=== PATIENT | male | born 1970 | race Caucasian/White ===

== ENCOUNTER → 2018-10-21 | Day surgery (SDC) | payer BC ==
[~2018-10-21] MED LIST: LACTATED RINGERS 1,000 ML IV SCH; LIDOCAINE 1% 20 ML VIAL (10MG/ML) FOR IV START INTRADERMA PRN; PROPOFOL 10 MG/ML 20 ML VIAL IV ONE
[2018-10-21 09:32] VITALS: TEMP 98.8
--- NOTE | 2018-10-21 10:27 | P.PCN ---
Date of Procedure: 10/21/18 Procedure(s) Performed: BRIEF HISTORY: Patient is a 48-year-old pleasant white male scheduled for an elective colonoscopy as a part of screening for colorectal neoplasia. PROCEDURE PERFORMED: Colonoscopy. PREOPERATIVE DIAGNOSIS: Screening for colon cancer. IV sedation per Anesthesia. PROCEDURE: After informed consent was obtained, the patient, was brought into the endoscopy unit. IV sedation was administered by Anesthesia under continuous monitoring. Digital rectal examination was normal. Initially the Olympus CF-160 flexible video colonoscope was then inserted in the rectum, gradually advanced into the cecum without any difficulty. Careful examination was performed as the scope was gradually being withdrawn. Ileocecal valve and the appendiceal orifice were visualized and appeared normal. Prep was excellent. Mucosa of the cecum, ascending colon, transverse colon, descending colon, sigmoid colon, and rectum appeared normal. Retroflexion was performed in the rectum and no lesions were seen. The patient tolerated the procedure well. IMPRESSION: Normal-appearing colon from rectum to cecum with no evidence of colorectal neoplasia . RECOMMENDATIONS: Findings of this examination were discussed with the patient as well as his family. He was advised to have a repeat screening colonoscopy in 10 years.
[2018-10-21 10:31] VITALS: PULSE 60
[2018-10-21 10:47] VITALS: BP 115/72; RESP 18
== END ==
LOC: ORWHC2ENDO 08:42
PROVIDERS: ATTEND Internal Medicine Gastroenterology
DX: Z12.11 Encounter for screening for malignant neoplasm of colon (principal); I10 Essential (primary) hypertension; R00.2 Palpitations; G47.33 Obstructive sleep apnea (adult) (pediatric); J45.990 Exercise induced bronchospasm; Z79.82 Long term (current) use of aspirin; Z79.899 Other long term (current) drug therapy
CPT/HCPCS: G0121; J2704; 45378

== ENCOUNTER → 2022-10-02 | Outpatient (CLI) | payer OTHER ==
[2022-10-02 11:57] LABS: Basophils # (A) 0.06 X 10*3/uL (0.00-0.10); Basophils % (A) 1.1 %; Eosinophils # (A) 0.24 X 10*3/uL (0.04-0.35); Eosinophils % (A) 4.5 %; HCT 42.9 % (39.6-50.0); Lymphocytes # (A) 1.62 X 10*3/uL (0.90-5.00); Lymphocytes % (A) 30.2 %; MCH 27.9 pg (27.0-32.0); MCHC 32.6 d/dL (32.0-37.0); MCV 85.6 FL (80.0-97.0); Mean Platelet Volume 10.4 FL (9.5-12.2); Monocytes # (A) 0.57 X 10*3/uL (0.20-1.00); Monocytes % (A) 10.6 %; NRBC Per 100 WBC 0 X 10*3/uL (0.00-0.01); Neutrophils # (A) 2.87 X 10*3/uL (1.80-7.70); Neutrophils % (A) 53.4 %; Platelet Count 209 X 10*3/uL (140-440); RBC 5.01 X 10*6/uL (4.40-5.60); RDW 14.6 % (11.5-14.5); WBC 5.37 X 10*3/uL (4.50-10.00)
[2022-10-02 12:18] LABS: ALT 16 U/L (10-49); AST 20 U/L (14-35); Albumin 4.5 d/dL (3.8-4.9); Alkaline Phosphatase 52 U/L (41-126); BUN/Creat Ratio 11.73 Ratio (12.00-20.00); Blood Urea Nitrogen 12.9 mg/dL (9.0-27.0); Calcium 9.4 mg/dL (8.7-10.3); Carbon Dioxide 26.6 mmol/L (21.6-31.8); Chloride 103 mmol/L (96-109); Chol/HDL Ratio 1.55 Ratio; Globulin 2.5 d/dL (1.6-3.3); Glucose 96 mg/dL (70-110); LDL Cholesterol,Calculated 37.5 mg/dL (0.0-131.0); Potassium 4.4 mmol/L (3.5-5.5); Sodium 139 mmol/L (135-145); Total Bilirubin 0.7 mg/dL (0.3-1.2); VLDL Calculation 12.78 mg/dL (5.00-40.00)
== END | disposition home or self-care (01) ==
LOC: LABWHC1 07:48
PROVIDERS: ATTEND Internal Medicine
DX: Z00.00 Encounter for general adult medical examination without abnormal findings (principal); Z12.5 Encounter for screening for malignant neoplasm of prostate
CPT/HCPCS: 36415; 80053; 80061; 84153; 85025; 86803

== ENCOUNTER → 2023-07-03 | Outpatient (CLI) | payer OTHER ==
--- NOTE | 2023-07-03 12:00 | US ---
EXAMINATION TYPE: US venous doppler duplex LE RT DATE OF EXAM: 07/03/2023 11:43 AM COMPARISON: NONE CLINICAL INDICATION: Male, 53 years old with history of I80.9 PHLEBITIS AND THROMBOPHLEBITIS OF UNSPE CIFIE; Right calf pain SIDE PERFORMED: Right TECHNIQUE: The lower extremity deep venous system is examined utilizing real time linear array sonog luiz with graded compression, doppler sonography and color-flow sonography. VESSELS IMAGED: Common Femoral Vein Deep Femoral Vein Greater Saphenous Vein * Femoral Vein Popliteal Vein Small Saphenous Vein * Proximal Calf Veins (* superficial vessels) Right Leg: Appears negative for DVTGrayscale, color doppler, spectral doppler imaging performed of t he deep veins of the lower extremities. There is normal flow, compressibility, vascular waveforms. 13.0 x 1.1 x 4.4cm superficial complex fluid collection seen right calf at patient's area of concer n IMPRESSION: No evidence for deep vein thrombosis of the radial artery. Subcutaneous fluid collection possibly representing hematoma. Consider further evaluation with MRI. Correlate for history of muscl e injury.
== END | disposition home or self-care (01) ==
LOC: RADUSWWP 11:12
PROVIDERS: ATTEND Orthopaedic Surgery
DX: I80.9 Phlebitis and thrombophlebitis of unspecified site (principal); M79.661 Pain in right lower leg; M25.561 Pain in right knee; M17.11 Unilateral primary osteoarthritis, right knee; M25.461 Effusion, right knee; M11.261 Other chondrocalcinosis, right knee; S83.401D Sprain of unspecified collateral ligament of right knee, subsequent encounter; S83.271D Complex tear of lateral meniscus, current injury, right knee, subsequent encounter; Z48.89 Encounter for other specified surgical aftercare

== ENCOUNTER → 2024-04-02 | Outpatient (CLI) | payer OTHER ==
--- NOTE | 2024-04-02 08:51 | XR ---
EXAMINATION TYPE: XR cervical spine limited DATE OF EXAM: 04/02/2024 8:36 AM INDICATION: Patient age:Male; 54 years old; Reason for study: M54.9 DORSALGIA; PHH, pain COMPARISON: None TECHNIQUE: The cervical spine was imaged in frontal, lateral, and odontoid projections. FINDINGS: The osseous structures show normal alignment without evidence of an acute fracture. Anterior osteophy tosis at C4-C5 and C5-C6. No significant disc space narrowing. Pedicles are intact. Soft tissues are within normal limits. The odontoid appears intact. IMPRESSION: 1. No fracture or dislocation. 2. Mild degenerative disc disease changes of the cervical spine. [facility], , 04/02/2024 8:49 AM
--- NOTE | 2024-04-02 08:55 | XR ---
EXAMINATION TYPE: XR thoracic spine complete DATE OF EXAM: 04/02/2024 8:36 AM INDICATION: Patient age:Male; 54 years old; Reason for study: M54.9 DORSALGIA; PHH. pain COMPARISON: Cervical spine radiograph of the same date, chest radiograph 10/22/2015, CT chest 10/10/2015 , thoracic spine radiographs 10/20/2015 TECHNIQUE: 3 views of the thoracic spine in frontal, lateral, and swimmer's projections. FINDINGS: No evidence of acute fracture. No vertebral body height loss is identified. No spondylolisthesis. Min imal dextrocurvature of the thoracic spine. Multilevel disc space narrowing with endplate sclerosis a nd anterior osteophytosis. IMPRESSION: 1. No acute osseous pathology. 2. Mild multilevel degenerative disc disease of the thoracic spine. [facility], , 04/02/2024 8:52 AM
[2024-04-02 11:11] LABS: ALT 15 U/L (10-49); AST 19 U/L (14-35); Albumin 4.4 g/dL (3.8-4.9); Albumin/Globulin Ratio 1.63 Ratio (1.60-3.17); Alkaline Phosphatase 49 U/L (41-126); Blood Urea Nitrogen 18.2 mg/dL (9.0-27.0); Calcium 9.6 mg/dL (8.7-10.3); Carbon Dioxide 25.9 mmol/L (21.6-31.8); Chloride 103 mmol/L (96-109); Chol/HDL Ratio 1.83 Ratio; Globulin 2.7 g/dL (1.6-3.3); Glucose 93 mg/dL (70-110); LDL Cholesterol,Calculated 56.9 mg/dL (0.0-131.0); Potassium 4.7 mmol/L (3.5-5.5); Prostate Specific Antigen 0.62 ng/mL (0.000-3.500); Sodium 138 mmol/L (135-145); Total Bilirubin 0.8 mg/dL (0.3-1.2); Total Protein 7.1 g/dL (6.2-8.2); VLDL Calculation 13.48 mg/dL (5.00-40.00)
[2024-04-02 13:44] LABS: Basophils # (A) 0.09 X 10*3/uL (0.00-0.10); Basophils % (A) 1.7 %; Eosinophils % (A) 3.7 %; HCT 43.1 % (39.6-50.0); HGB 14.1 g/dL (13.0-17.0); Lymphocytes # (A) 1.43 X 10*3/uL (0.90-5.00); Lymphocytes % (A) 26.4 %; MCHC 32.7 g/dL (32.0-37.0); MCV 82.6 FL (80.0-97.0); Mean Platelet Volume 10.3 FL (9.5-12.2); Monocytes # (A) 0.53 X 10*3/uL (0.20-1.00); Monocytes % (A) 9.8 %; NRBC Per 100 WBC 0 X 10*3/uL (0.00-0.01); Neutrophils # (A) 3.16 X 10*3/uL (1.80-7.70); Neutrophils % (A) 58.2 %; Platelet Count 247 X 10*3/uL (140-440); RBC 5.22 X 10*6/uL (4.40-5.60); RDW 15.5 % (11.5-14.5); WBC 5.42 X 10*3/uL (4.50-10.00)
== END | disposition home or self-care (01) ==
LOC: LABWHC1 07:57
PROVIDERS: ATTEND Internal Medicine
DX: Z00.00 Encounter for general adult medical examination without abnormal findings (principal); Z12.5 Encounter for screening for malignant neoplasm of prostate; Z11.59 Encounter for screening for other viral diseases; M54.9 Dorsalgia, unspecified; M50.30 Other cervical disc degeneration, unspecified cervical region; M51.34 Other intervertebral disc degeneration, thoracic region
CPT/HCPCS: 36415; 72040; 72072; 80053; 80061; 84153; 84443; 85025; 86803